=== PATIENT | female | born 1955 | race Caucasian/White ===

== ENCOUNTER → 2020-12-18 08:43 | Outpatient (CLI) | payer OTHER, SELFPAY ==
[2020-12-18 13:54] LABS: Chloride 109 mmol/L (98-107); Sodium 145 mmol/L (136-145)
[2020-12-18 13:55] LABS: Potassium 4.4 mmoL/L (3.5-5.1)
[2020-12-18 13:57] LABS: Alanine Aminotransferase 19 U/L (12-78); Albumin/Globulin Ratio 1.5 (1.1-1.8); Alkaline Phosphatase 118 U/L (38-126); Anion Gap 11.4 mEq/L (5-15); Aspartate Amino Transferase 31 U/L (14-36); Bilirubin,Total 1.4 mg/dl (0.2-1.3); Blood Urea Nitrogen 16 mg/dl (7-17); Calcium 9.1 mg/dl (8.4-10.2); Carbon Dioxide 29 mmol/L (22.0-30.0); Cholesterol 195 mg/dl (140-200); Estimated Glomerular Filt Rate 85 ml/min (>60); GFR (African American) 102 ML/MIN (>60); Globulin 2.7 g/dL (1.3-3.2); Glucose 83 mg/dl (74-100); Magnesium 1.9 mg/dl (1.6-2.3); Total Protein,Serum 6.7 g/dl (6.3-8.2); Triglycerides 131 mg/dl (30-150); VLDL Cholesterol 26 mg/dL (0-40)
[2020-12-18 13:58] LABS: Chol/HDL Ratio 5.3 (1-3.5); HDL Cholesterol 37 mg/dl (40-60)
[2020-12-18 14:09] LABS: Direct LDL Cholesterol 121.87 mg/dL (100-129)
== END ==
PROVIDERS: Visit Provider Nurse Practitioner Family
DX: Z00.00 Encounter for general adult medical examination without abnormal findings (principal); I10 Essential (primary) hypertension; R25.2 Cramp and spasm
CPT/HCPCS: 36415; 80053; 80061; 83735

== ENCOUNTER 2021-02-26 12:08 | Emergency (ER) | payer OTHER, SELFPAY ==
[2021-02-26 12:08] VITALS: BP 166/100; PULSE 98; RESP 16; TEMP 36.9; O2SAT 98; BMI 31.1
[2021-02-26 12:30] VITALS: BP 148/90; PULSE 73; RESP 16
[2021-02-26 13:00] VITALS: BP 159/119; PULSE 75; RESP 16
--- NOTE | 2021-02-26 13:21 | HMH.EDANIB ---
ED Disposition Clinical Impression: Dog bite Qualifiers: Encounter type: initial encounter Qualified Code(s): W54.0XXA - Bitten by dog, initial encounter Laceration of knee Qualifiers: Encounter type: initial encounter Laterality: right Qualified Code(s): S81.011A - Laceration without foreign body, right knee, initial encounter Disposition: Home, Self-Care Condition on Discharge: Good Instructions: Animal Bites Additional Instructions: suture out 12 days and recheck if needed Referrals: Gil Gallardo MD [Primary Care Provider] - - Critical Care Critical Care Time: No Attestation: On 02/26/21, the high probability of a clinically significant, sudden or life threatening deterioration of the following system(s) required my full and direct attention, intervention and personal management. The time I documented below is in addition to time spent performing reported procedures but includes the following listed in this critical care notation. Medical Decision Making - Medical Records Medical records reviewed: Yes: I reviewed the patient's medical records. - [place] Inquiry Pt receiving controlled substance: No Vital Signs: 02/26/21 12:08 02/26/21 12:30 02/26/21 13:00 Temperature 98.5 F Temperature Source Oral Pulse Rate 73 75 Pulse Rate [Radial] 98 H Respiratory Rate 16 16 16 Blood Pressure 148/90 H 159/119 H Blood Pressure [Right Arm] 166/100 H Blood Pressure Mean 119 132 Blood Pressure Mean [Right Arm] 122 Blood Pressure Position [Right Arm] Sitting 02 Sat by Pulse Oximetry 98 Oxygen Delivery Method Room Air Animal Bite HPI - General Chief Complaint: Animal Bite Stated Complaint: dog bite Time Seen by Provider: 02/26/21 12:15 Mode of Arrival: Ambulatory Source of Information: Patient, Medical Record Limitations: No Limitations Description of Symptoms (Recalled from ER Triage Doc. by RN): TO ED PER [facility] CAR WITH C/O DOG BITE TO RT KNEE AND RT ARM. STATES SHE WAS ATTEMPTING TO BREAK UP A DOG FIGHT. PT WAS MEDICAL ASSEMBLY OF BOTH DOGS. - History of Present Illness HPI narrative: dog bite rt knee and forearm - known animals - complaint: animal bite Onset (ago): hour(s) Animal: dog Description of animal: household pet Mechanism: bite Location: other (rt knee/forearm) Right: forearm, knee Context: animals fighting Associated symptoms: none Treatments prior to arrival: pressure - Related Data Patient tetanus UTD: No Previous Rx's Medication Instructions Recorded amoxicillin 875 mg-potassium 1 tab PO BID 10 Days #20 tab 02/26/21 clavulanate 125 mg tablet hydrocodone 5 mg-acetaminophen 325 1 tab PO BID 7 Days #14 tab 02/26/21 mg tablet Allergies Allergy/AdvReac Type Severity Reaction Status Date / Time Sulfa (Sulfonamide Allergy Unknown Unverified 05/16/17 14:09 Antibiotics) [SULFA (SULFONAMIDE ANTIBIOTICS)] [facility] History - Hepatitis A Screen Drug use history?: No High risk sexual behaviors?: No History of sexually transmitted infection?: No Currently employed?: No Childcare worker?: No Do you have indoor plumbing?: Yes Do you have electricity?: Yes Attestation statement:: This patient has been screened for Hepatitis A risk factors. I have reviewed the patient's past medical history: Yes ROS Obtained: Yes All systems reviewed & no additional complaints - Constitutional Constitutional: Denies fever(s) - Eyes Eyes: Denies change in vision - ENT Ears, Nose, Mouth, and Throat: Denies sore throat - Cardiovascular Cardiovascular: Denies chest pain - Respiratory Respiratory: Denies shortness of breath - Gastrointestinal Gastrointestingal: Denies: abdominal pain - Genitourinary Female Genitourinary: Denies hematuria - Musculoskeletal Musculoskeletal: Denies joint pain - Integumentary/Breasts Skin/Breast: Reports as per HPI, Reports other (lac rt knee) - Neurologic Neurologic: Denies seizure-like activity Physical Ex
--- NOTE | 2021-02-26 14:29 | PC.NURSE ---
TDAP 0.5MG IM LT DELTOID GIVEN. UNABLE TO ORDER MED DUE TO MED BEING PULLED BEFORE ORDERED.
--- NOTE | 2021-02-26 14:34 | PC.NURSE ---
ARM WOUND CLEANED AND DRESSED, RT KNEE CLEANED AND DRESSED
[2021-02-26 14:35] VITALS: BP 133/58; PULSE 88; RESP 18; TEMP 36.6; O2SAT 98
== END 2021-02-26 14:37 | disposition home or self-care (01) ==
PROVIDERS: Emergency Provider Emergency Medicine; PCP Internal Medicine Adolescent Medicine
DX: S81.011A Laceration without foreign body, right knee, initial encounter (principal); S41.111A Laceration without foreign body of right upper arm, initial encounter; W54.0XXA Bitten by dog, initial encounter; Z88.2 Allergy status to sulfonamides
CPT/HCPCS: 12002; 90471; 90715; 99282

== ENCOUNTER 2021-03-16 16:38 | Emergency (ER) | payer OTHER, SELFPAY ==
[2021-03-16 17:14] VITALS: BP 136/91; PULSE 71; RESP 16; TEMP 37.2; O2SAT 99; BMI 31.3
[2021-03-16 17:24] LABS: Apearance,Urine Clear (Clear); Color,Urine Yellow (Yellow); PH,Urine 5.5 (5.0-8.5)
[2021-03-16 17:25] LABS: Bilirubin,Urine Negative (Negative); Blood, Urine 1+ (Negative); Glucose,Urine (UA) Negative (Negative); Ketones,Urine Negative (Negative); Protein,Urine Negative (Negative); Specific Gravity, Urine < 1.005 (1.005-1.030); UTC Leukocyte Esterase,Urine 1+ (Negative); UTC Nitrate,Urine Negative (Negative); Urobilinogen,Urine 1 EU/dl (0.2)
--- NOTE | 2021-03-16 17:41 | HMH.EDUTC ---
[facility] [place] Clinical Impression: UTI (urinary tract infection) Qualifiers: Urinary tract infection type: site unspecified Hematuria presence: with hematuria Qualified Code(s): N39.0 - Urinary tract infection, site not specified Disposition: Home, Self-Care Condition on Discharge: Good Instructions: Urinary Tract Infection, DI for Urinary Tract Infection (UTI), Phenazopyridine Additional Instructions: Drink plenty of fluids. Take tylenol or ibuprofen for pain or fever. Take the medications as directed. Follow up with your regular doctor. GO TO THE ER FOR ANY WORSENING SYMPTOMS The pyridium will make your urine turn orange, this is an expected side effect. It will stain your clothes if it comes into contact with them. Prescriptions: Ondansetron [Zofran 4mg ODT] 4 mg PO Q8HP PRN #12 tab PRN Reason: Nausea Transmission Status: Received by [facility] Phenazopyridine HCl [Pyridium 200mg Tablet] 200 pow PO TID #6 tab Transmission Status: Received by [facility] Referrals: Gil Gallardo MD [Primary Care Provider] - Time of Disposition: 17:51 Medical Decision Making - Medical Records Medical records reviewed: No: I reviewed the patient's medical records. - [place] Inquiry Pt receiving controlled substance: No Vital Signs: 03/16/21 17:14 03/16/21 17:49 Temperature 99 F 98.4 F Temperature Source Oral Pulse Rate 71 Pulse Rate [Left] 71 Respiratory Rate 16 18 Blood Pressure 136/91 H Blood Pressure [Right Arm] 136/91 H Blood Pressure Mean [Right Arm] 106 02 Sat by Pulse Oximetry 99 - Lab Data Lab results reviewed: Yes: I reviewed the patient's lab results. Lab Results 03/16/21 17:20: Urine Color Yellow, Urine Appearance Clear, Urine pH 5.5, Ur Specific Graham < 1.005 L, Urine Protein Negative, Urine Glucose (UA) Negative, Urine Ketones Negative, Urine Blood 1+, Urine Nitrate Negative, Urine Bilirubin Negative, Urine Urobilinogen 1, Ur Leukocyte Esterase 1+ A Orders (Tests/Meds): ED MEDICATIONS Discontinued Medications Generic Name Dose Route Start Last Admin Trade Name Freq PRN Reason Stop Dose Admin Levofloxacin 500 mg 03/16/21 17:54 03/16/21 17:56 Levofloxacin 500mg Tab PO 03/16/21 17:55 500 mg ONCE ONE Administration ORDERS Category Date Time Status Urine Culture Stat Micro 03/16/21 17:20 Received [facility] [place] H[place] - General Stated complaint: poss uti Time Seen by Provider: 03/16/21 17:41 Mode of Arrival: Ambulatory Source of Information: Patient Limitations: No Limitations Description of Symptoms (Recalled from Triage Doc. by RN): pt believes she has a uti. she has been having pain with urination, middle back and lower abd pain. pt states, if feels like sand in the bottom of my stomach. HEENT Symptoms (Recalled from RN notes): No Resp Symptoms (Recalled from RN notes): No Skin Symptoms (Recalled from RN notes): No MS Symptoms (Recalled from RN notes): Yes (middle back pain) Functional Status (Recalled from RN notes): na - History of Present Illness Provider Complaint: She c/o low back pain and burning with urination for the past 3 days. - Related Data Previous Rx's Medication Instructions Recorded amoxicillin 875 mg-potassium 1 tab PO BID 10 Days #20 tab 02/26/21 clavulanate 125 mg tablet hydrocodone 5 mg-acetaminophen 325 1 tab PO BID 7 Days #14 tab 02/26/21 mg tablet Ondansetron [Zofran 4mg ODT] 4 mg PO Q8HP PRN #12 tab 03/16/21 Phenazopyridine HCl [Pyridium 200 pow PO TID #6 tab 03/16/21 200mg Tablet] Allergies Allergy/AdvReac Type Severity Reaction Status Date / Time Sulfa (Sulfonamide Allergy Unknown Verified 02/26/21 13:44 Antibiotics) [SULFA (SULFONAMIDE ANTIBIOTICS)] - Worker's Comp Is this a Worker's Comp case?: No [facility] History - Hepatitis A Screen Drug use history?: No High risk sexual behaviors?: No History of sexually transmitted infection?: No
[2021-03-16 17:49] VITALS: BP 136/91; PULSE 71; RESP 18; TEMP 36.9
== END 2021-03-16 18:04 | disposition home or self-care (01) ==
PROVIDERS: Emergency Provider Nurse Practitioner Family; PCP Internal Medicine Adolescent Medicine
DX: N39.0 Urinary tract infection, site not specified (principal); Z88.2 Allergy status to sulfonamides
CPT/HCPCS: 81003; 87086; 87088; 87186; 99202; G0463

== ENCOUNTER → 2021-09-02 07:22 | Outpatient (CLI) | payer OTHER, SELFPAY ==
[2021-09-02 14:17] LABS: Basophils # 0.1 K/mm3 (0-0.2); Eosinophils # 0.4 K/mm3 (0.0-0.4); Hematocrit 44.4 % (37.0-47.0); Hemoglobin 14.5 g/dL (12.2-16.2); Lymphocytes # 2.1 K/mm3 (0.7-4.5); Lymphocytes % 33.7 % (10-50); Mean Corpuscular HGB Conc 32.7 g/dL (31.8-35.4); Mean Corpuscular Hemoglobin 30.2 pg (27.0-31.2); Mean Corpuscular Volume 92.2 fl (81-99); Mean Platelet Volume 8.6 fl (7.4-10.4); Monocytes # 0.4 K/mm3 (0.1-1.0); Monocytes % 6.6 % (1.7-9.3); Neutrophils # 3.1 K/mm3 (1.8-7.8); Neutrophils % 50.8 % (37.0-80.0); Platelet Count 326 K/mm3 (142-424); Red Blood Count 4.82 M/mm3 (4.20-5.40); Red Cell Distribution Width 13.3 % (11.5-17.5); White Blood Count 6.1 K/mm3 (4.8-10.8)
[2021-09-02 14:54] LABS: Chloride 110 mmol/L (98-107); Potassium 4.4 mmoL/L (3.5-5.1); Sodium 142 mmol/L (136-145)
[2021-09-02 14:56] LABS: Blood Urea Nitrogen 13 mg/dl (7-17); Estimated Glomerular Filt Rate 84 ml/min (>60); GFR (African American) 102 ML/MIN (>60)
[2021-09-02 14:57] LABS: Alanine Aminotransferase 14 U/L (12-78); Albumin Level 3.8 g/dl (3.5-5.0); Albumin/Globulin Ratio 1.4 (1.1-1.8); Alkaline Phosphatase 109 U/L (38-126); Anion Gap 8.4 mEq/L (5-15); Aspartate Amino Transferase 26 U/L (14-36); Bilirubin,Total 0.9 mg/dl (0.2-1.3); Calcium 8.7 mg/dl (8.4-10.2); Carbon Dioxide 28 mmol/L (22.0-30.0); Cholesterol 216 mg/dl (140-200); Globulin 2.8 g/dL (1.3-3.2); Glucose 96 mg/dl (74-100); HDL Cholesterol 31 mg/dl (40-60); Total Protein,Serum 6.6 g/dl (6.3-8.2); Triglycerides 147 mg/dl (30-150); VLDL Cholesterol 29 mg/dL (0-40)
[2021-09-02 15:08] LABS: Direct LDL Cholesterol 142.88 mg/dL (100-129)
== END ==
PROVIDERS: Visit Provider Nurse Practitioner Family
DX: I10 Essential (primary) hypertension (principal); E78.5 Hyperlipidemia, unspecified
CPT/HCPCS: 36415; 80053; 80061; 85025

== ENCOUNTER → 2022-04-15 14:48 | Outpatient (CLI) | payer MEDICARE, MEDICAID, SELFPAY ==
--- NOTE | 2022-04-15 14:55 | XR_ITS ---
FINAL REPORT CLINICAL HISTORY: knee pain FINDINGS: LEFT KNEE Two views of the left knee were obtained. There is no acute fracture or dislocation. There is mild medial compartment joint space narrowing. There is minimal osteophyte formation along the superior margin of the patella. Soft tissues are unremarkable. IMPRESSION: Mild medial compartment joint space narrowing with minimal osteophyte formation along superior margin of the patella. Reviewed, Interpreted and Dictated by Jude Vines MD Transcribed by Syl Lofton Authenticated and [facility]
== END ==
PROVIDERS: PCP Family Medicine; Visit Provider Family Medicine
DX: M25.562 Pain in left knee (principal)
CPT/HCPCS: 73560

== ENCOUNTER → 2022-12-06 19:07 | Outpatient (CLI) | payer MEDICARE, MEDICAID, SELFPAY ==
[2022-12-06 20:03] LABS: Basophils % 0.5 % (0.1-2.0); Eosinophils # 0.3 K/mm3 (0.0-0.4); Eosinophils % 3.2 % (0.1-12.0); Hemoglobin 13.8 g/dL (12.2-16.2); Lymphocytes # 2.3 K/mm3 (0.7-4.5); Lymphocytes % 26.7 % (10-50); Mean Corpuscular HGB Conc 31.4 g/dL (31.8-35.4); Mean Corpuscular Hemoglobin 28.8 pg (27.0-31.2); Mean Corpuscular Volume 91.9 fl (81-99); Monocytes # 0.6 K/mm3 (0.1-1.0); Neutrophils # 5.3 K/mm3 (1.8-7.8); Neutrophils % 62.6 % (37.0-80.0); Platelet Count 319 K/mm3 (142-424); Red Blood Count 4.79 M/mm3 (4.20-5.40); Red Cell Distribution Width 13.5 % (11.5-17.5); White Blood Count 8.5 K/mm3 (4.8-10.8)
[2022-12-06 20:27] LABS: Alanine Aminotransferase 18 U/L (12-78); Albumin Level 4.1 g/dl (3.5-5.0); Albumin/Globulin Ratio 1.5 (1.1-1.8); Alkaline Phosphatase 116 U/L (38-126); Anion Gap 10.8 mEq/L (5-15); Aspartate Amino Transferase 30 U/L (14-36); Bilirubin,Total 1.2 mg/dl (0.2-1.3); Blood Urea Nitrogen 8 mg/dl (7-17); Calcium 9.5 mg/dl (8.4-10.2); Carbon Dioxide 29 mmol/L (22.0-30.0); Chloride 110 mmol/L (98-107); Chol/HDL Ratio 7.6 (1-3.5); Cholesterol 235 mg/dl (140-200); Estimated Glomerular Filt Rate 72 ml/min (>60); GFR (African American) 87 ML/MIN (>60); Globulin 2.8 g/dL (1.3-3.2); Glucose 95 mg/dl (74-100); HDL Cholesterol 31 mg/dl (40-60); Potassium 4.8 mmoL/L (3.5-5.1); Sodium 145 mmol/L (136-145); Total Protein,Serum 6.9 g/dl (6.3-8.2); Triglycerides 258 mg/dl (30-150); VLDL Cholesterol 52 mg/dL (0-40)
[2022-12-06 20:38] LABS: Direct LDL Cholesterol 130.36 mg/dL (100-129)
[2022-12-06 20:58] LABS: Thyroid Stimulating Hormone 2.83 uIU/mL (0.465-4.68)
== END ==
PROVIDERS: PCP Nurse Practitioner Family; Visit Provider Nurse Practitioner Family
DX: E78.5 Hyperlipidemia, unspecified (principal); I10 Essential (primary) hypertension; Z79.899 Other long term (current) drug therapy
CPT/HCPCS: 80053; 80061; 84443; 85025

== ENCOUNTER 2023-06-22 14:55 | Outpatient (CLI) | payer MEDICARE, SELFPAY ==
--- NOTE | 2023-06-22 15:02 | XR_ITS ---
FINAL REPORT CLINICAL HISTORY: hip pain COMPARISON: None FINDINGS: AP and frog leg views of the left hip were obtained. There is no prior exam for comparison. There is no acute fracture or dislocation. There is mild narrowing of the joint space of the left hip, especially when compared to the right side. There is subchondral sclerosis and small osteophytes projecting from the inferior margin of the femoral head consistent with osteoarthritic change. Soft tissues are within normal limits. IMPRESSION: Narrowing of the left hip joint space with subchondral sclerosis and small osteophytes consistent with osteoarthritic change. Reviewed, Interpreted and Dictated by Jude Vines MD Transcribed by Mariella Isabel Authenticated and [facility]
== END 2023-06-22 23:59 ==
LOC: RAD 14:58
PROVIDERS: PCP Family Medicine; Visit Provider Family Medicine
DX: M25.552 Pain in left hip (principal)
CPT/HCPCS: 73502

== ENCOUNTER 2023-11-09 16:48 | Outpatient (CLI) | payer MEDICARE, SELFPAY | END 2023-11-09 23:59 | disposition home or self-care (01) | LOC: LAB.DROPOF 16:49 | PROVIDERS: PCP Nurse Practitioner Family; Visit Provider Nurse Practitioner Family | DX: R30.0 Dysuria (principal); B96.20 Unspecified Escherichia coli [E. coli] as the cause of diseases classified elsewhere | CPT/HCPCS: 87086; 87088; 87186 ==